=== PATIENT | male | born 1945 | race Caucasian/White ===

== ENCOUNTER 2018-03-29 01:01 | Inpatient (IN) | payer MEDICARE, OTHER ==
[2018-03-29] MEDS: morphine 4 MG/ML VIAL IV (01:11)
[2018-03-29] MEDS ORDERED: DEXTROSE 50% 50 ML SYRINGE ×2 (02:10→02:11)
[2018-03-29] MEDS: SODIUM CHLORIDE 0.9% 1L BAG IV* (02:17)
[2018-03-29] MEDS: SOD CHLORIDE 0.9% 1,000 ML IV ×3 (02:17→03:38)
[2018-03-29] MEDS: DEXTROSE 50% 50 ML SYRINGE IV ×2 (02:18→04:16)
[2018-03-29] MEDS: ONDANSETRON 4 MG INJ IV (02:19)
[2018-03-29 02:23] LABS: ADD MAN DIFF? NO
[2018-03-29] MEDS: DEXAMETHASONE 10 MG/ML 1 ML INJ IV (02:28)
[2018-03-29 02:49] LABS: BASOPHIL # 0.1 10^3/ul (0.0-0.1); BASOPHILS % 0.4 % (0.0-2.0); EOSINOPHILS # 0.1 10^3/ul (0.0-0.5); EOSINOPHILS % 0.6 % (0.0-7.0); HEMATOCRIT 31.3 % (42.0-52.0); HEMOGLOBIN 9.7 g/dl (14.0-18.0); LYMPHOCYTES # 1.5 10^3/ul (0.8-2.9); LYMPHOCYTES % 8.6 % (15.0-51.0); MEAN CORPUSCULAR HEMOGLOBIN 32.2 pg (29.0-33.0); MONOCYTE # 0.8 10^3/ul (0.3-0.9); MONOCYTES % 4.5 % (0.0-11.0); NEUTROPHIL # 15.2 10^3/ul (1.6-7.5); NEUTROPHILS % 85.1 % (39.0-77.0); PLATELET COUNT 250 10^3/UL (140-415); RED BLOOD COUNT 3.01 10^6/ul (4.70-6.10); RED CELL DISTRIBUTION WIDTH 13.1 % (11.5-14.5)
[2018-03-29 02:49] LABS: WHITE BLOOD COUNT 17.9 10^3/ul (4.8-10.8)
[2018-03-29 03:09] LABS: ADD UMIC NO; UR ASCORBIC ACID NEGATIVE (NEGATIVE); UR BILIRUBIN (Dip) NEGATIVE (NEGATIVE); UR BLOOD (Dip) NEGATIVE (NEGATIVE); UR CLARITY CLEAR (CLEAR); UR COLOR YELLOW (YELLOW); UR GLUCOSE (Dip) NEGATIVE (NEGATIVE); UR KETONES (Dip) NEGATIVE (NEGATIVE); UR LEUKOCYTE ESTERASE (Dip) NEGATIVE Leu/ul (NEGATIVE); UR NITRITE (Dip) NEGATIVE (NEGATIVE); UR SPECIFIC GRAVITY (Dip) 1.011 (1.003-1.030); UR TOTAL PROTEIN (Dip) NEGATIVE (NEGATIVE); UR UROBILINOGEN (Dip) NEGATIVE (NEGATIVE)
[2018-03-29 03:17] LABS: ALANINE AMINOTRANSFERASE 20 IU/L (13-69); ALBUMIN 3.1 g/dl (3.3-4.9); ALBUMIN/GLOBULIN RATIO 1.29; ALKALINE PHOSPHATASE 70 IU/L (42-121); ANION GAP 25 (8-16); ASPARTATE AMINO TRANSFERASE 58 IU/L (15-46); BILIRUBIN,INDIRECT 0.2 mg/dl (0-1.1); BILIRUBIN,TOTAL 0.2 mg/dl (0.2-1.3); BLOOD UREA NITROGEN 27 mg/dl (7-20); CALCIUM 7.7 mg/dl (8.4-10.2); CARBON DIOXIDE 10 mmol/L (21-31); CHLORIDE 111 mmol/L (97-110); CREATININE 1.24 mg/dl (0.61-1.24); GLUCOSE 65 mg/dl (70-220); LIPASE 345 U/L (23-300); SODIUM 141 mmol/L (135-144); TOTAL PROTEIN 5.5 g/dl (6.1-8.1)
[2018-03-29 03:29] LABS: LACTIC ACID 13.4 mmol/L (0.5-2.0)
[2018-03-29 03:34] LABS: TROPONIN-I < 0.010 ng/ml (0.000-0.120)
[2018-03-29 03:34] LABS: B-TYPE NATRIURETIC PEPTIDE 36 PG/ML (0-125)
[2018-03-29] MEDS: PIPER-TAZO 3.375 GM IV (PMX) 100 ML IVPB ×3 (03:44→22:17)
[2018-03-29] MEDS: metroNIDAZOLE 500 MG/NS (PMX) 100 ML IVPB ×3 (03:45→20:44)
[2018-03-29] MEDS ORDERED: ONDANSETRON 4 MG INJ IV (04:00)
[2018-03-29] MEDS ORDERED: BISACODYL (EC) 5 MG TAB PO (04:00)
[2018-03-29] MEDS ORDERED: DOCUSATE SODIUM 100 MG CAP PO (04:00)
[2018-03-29] MEDS ORDERED: ACETAMINOPHEN 650 MG SUPP PR (04:00)
[2018-03-29 04:08] LABS: ADD MAN DIFF? NO
[2018-03-29] MEDS: NORepinephrine 8MG/250 ML (PMX 250 ML IV (04:10)
[2018-03-29 04:11] LABS: BASOPHIL # 0.1 10^3/ul (0.0-0.1); BASOPHILS % 0.5 % (0.0-2.0); EOSINOPHILS # 0.1 10^3/ul (0.0-0.5); EOSINOPHILS % 0.4 % (0.0-7.0); HEMATOCRIT 41.6 % (42.0-52.0); HEMOGLOBIN 12.3 g/dl (14.0-18.0); LYMPHOCYTES # 1.1 10^3/ul (0.8-2.9); LYMPHOCYTES % 5.6 % (15.0-51.0); MEAN CORPUSCULAR HGB CONC 29.6 g/dl (32.0-37.0); MEAN CORPUSCULAR VOLUME 108.3 fl (82.0-101.0); MEAN PLATELET VOLUME 10.8 fl (7.4-10.4); MONOCYTE # 1.4 10^3/ul (0.3-0.9); MONOCYTES % 6.7 % (0.0-11.0); NEUTROPHIL # 17.2 10^3/ul (1.6-7.5); NUCLEATED RED BLOOD CELLS% 0.1 /100WBC (0.0-0.0); PLATELET COUNT 295 10^3/UL (140-415); RED BLOOD COUNT 3.84 10^6/ul (4.70-6.10)
[2018-03-29] MEDS: SODIUM BICARBONATE (IV ADD) 150 MEQ in DEXTROSE 5% 1,000 ML IV (04:50)
[2018-03-29 04:56] LABS: AADO2 Arterial 69.8 mmHg (7.0-24.0); Allen Test ACCEPTAB; Arterial Base Excess -30.9 mmol/L (-3.0-3); Arterial Blood Gas Oxygen Sat 99.8 mmHG (95.0-100.0); Arterial COHb 2.2 % (0.0-3.0); Arterial Fraction of Oxyhgb 97.3 % (93.0-99.0); Arterial HCO3 2.8 mmol/L (22.0-26.0); Arterial MetHb 0.3 % (0.0-1.5); Arterial Total Hemglobin 12.9 g/dl (12.0-18.0); Arterial pCO2 18.5 mmhg (35-45); Blood Gas IEPAP 15/5; Blood Gas PS 10; MODE MASK - BIPAP; Site LB
[2018-03-29] MEDS ORDERED: VANCOMYCIN IV PER PHARMACY XX (05:00)
[2018-03-29] MEDS: ALBUTEROL/IPRATROPIUM (NEB) 3 ML AMP NEB ×5 (05:03→21:12)
[2018-03-29] MEDS ORDERED: NA BICARBONATE 8.4% 50 ML SYG (05:42)
[2018-03-29] MEDS: NA BICARBONATE 8.4% 50 ML SYG IV ×6 (05:49→22:18)
[2018-03-29] MEDS: PANTOPRAZOLE 40 MG INJ IV (06:09)
[2018-03-29] MEDS: VANCOMYCIN 1.25 GM in SOD CHLORIDE 0.9% 250 ML IVPB (06:09)
[2018-03-29 06:29] LABS: FREE T4 (FREE THYROXINE) 1.33 ng/dl (0.78-2.44)
[2018-03-29 06:31] LABS: LACTIC ACID 20.3 mmol/L (0.5-2.0)
[2018-03-29 06:34] LABS: ADD MAN DIFF? NO
[2018-03-29] MEDS ORDERED: PHENYLephrine 20MG IN 250 ML 250 ML (06:37)
[2018-03-29 06:45] LABS: WHITE BLOOD COUNT 13.2 10^3/ul (4.8-10.8)
[2018-03-29 06:45] LABS: BASOPHIL # 0.1 10^3/ul (0.0-0.1); BASOPHILS % 0.4 % (0.0-2.0); EOSINOPHILS % 0.2 % (0.0-7.0); HEMATOCRIT 34.7 % (42.0-52.0); HEMOGLOBIN 10.6 g/dl (14.0-18.0); LYMPHOCYTES # 0.7 10^3/ul (0.8-2.9); LYMPHOCYTES % 5.1 % (15.0-51.0); MEAN CORPUSCULAR HEMOGLOBIN 31.1 pg (29.0-33.0); MEAN CORPUSCULAR HGB CONC 30.5 g/dl (32.0-37.0); MEAN CORPUSCULAR VOLUME 101.8 fl (82.0-101.0); MONOCYTE # 0.8 10^3/ul (0.3-0.9); MONOCYTES % 6.1 % (0.0-11.0); NEUTROPHIL # 11.6 10^3/ul (1.6-7.5); NEUTROPHILS % 87.6 % (39.0-77.0); PLATELET COUNT 272 10^3/UL (140-415); RED BLOOD COUNT 3.41 10^6/ul (4.70-6.10); RED CELL DISTRIBUTION WIDTH 13.2 % (11.5-14.5)
[2018-03-29 07:00] LABS: BLOOD UREA NITROGEN 25 mg/dl (7-20); CHLORIDE 113 mmol/L (97-110); CREATININE 1.42 mg/dl (0.61-1.24); INR 2.68; POTASSIUM 5.8 mmol/L (3.5-5.1); PROTIME 29.3 Sec (11.9-14.9); PT RATIO 2.3; SODIUM 141 mmol/L (135-144)
[2018-03-29] MEDS ORDERED: SUCCINYLCHOLINE CHLORIDE 100 MG/5 ML SYG IV (07:00)
[2018-03-29] MEDS ORDERED: ETOMIDATE 20 MG INJ (07:00)
[2018-03-29 07:01] LABS: PARTIAL THROMBOPLASTIN TIME 54.1 Sec (25.0-35.0)
[2018-03-29 07:03] LABS: ANION GAP 29 (8-16)
[2018-03-29 07:05] LABS: CARBON DIOXIDE < 5 mmol/L (21-31); GLUCOSE 29 mg/dl (70-220)
[2018-03-29] MEDS: PHENYLephrine 20MG IN 250 ML 250 ML IV (07:06)
[2018-03-29] MEDS ORDERED: MIDAZOLAM 1 MG/ML 2 ML INJ (07:20)
[2018-03-29] MEDS: MIDAZOLAM 1 MG/ML 2 ML INJ IV (07:55)
[2018-03-29] MEDS: FENTAnyl (DRIP) 1000 mcg/100mL 100 ML IV (08:00)
[2018-03-29] MEDS: MIDAZOLAM (DRIP) 50 mg/50 mL 50 ML IV (08:30)
[2018-03-29 08:55] LABS: LACTIC ACID > 24.0 mmol/L (0.5-2.0)
[2018-03-29 08:59] LABS: AADO2 Arterial 156.1 mmHg (7.0-24.0); Arterial Base Excess -28.6 mmol/L (-3.0-3); Arterial Blood Gas Oxygen Sat 99.8 mmHG (95.0-100.0); Arterial COHb 2.7 % (0.0-3.0); Arterial Fraction of Oxyhgb 96.9 % (93.0-99.0); Arterial HCO3 3.8 mmol/L (22.0-26.0); Arterial MetHb 0.2 % (0.0-1.5); Arterial pCO2 21.2 mmhg (35-45); Blood Gas Low PEEP Setting 0 cmH2O; MODE VENT - AC; Site Right Brachial
[2018-03-29] MEDS: PHENYLephrine 80 MG in DEXTROSE 5% 492 ML IV ×4 (09:02→21:36)
[2018-03-29 09:08] LABS: ANION GAP 39 (8-16); BLOOD UREA NITROGEN 25 mg/dl (7-20); CALCIUM 7.4 mg/dl (8.4-10.2); CHLORIDE 108 mmol/L (97-110); CREATININE 1.58 mg/dl (0.61-1.24); GLUCOSE 84 mg/dl (70-220); POTASSIUM 4.6 mmol/L (3.5-5.1); SODIUM 148 mmol/L (135-144)
[2018-03-29 09:13] LABS: CARBON DIOXIDE 6 mmol/L (21-31)
[2018-03-29] MEDS: VASOPRESSIN 60 UNIT in DEXTROSE 5% 57 ML IV (09:26)
[2018-03-29 09:40] LABS: LACTIC ACID > 24.0 mmol/L (0.5-2.0)
[2018-03-29] MEDS: CIPROFLOXACIN 400MG/D5W 200 ML IVPB ×2 (10:59→21:34)
[2018-03-29 12:44] LABS: ANION GAP 43 (8-16); BLOOD UREA NITROGEN 24 mg/dl (7-20); CALCIUM 6.9 mg/dl (8.4-10.2); CHLORIDE 102 mmol/L (97-110); CREATININE 1.77 mg/dl (0.61-1.24); GLUCOSE 166 mg/dl (70-220); POTASSIUM 3.8 mmol/L (3.5-5.1); SODIUM 147 mmol/L (135-144)
[2018-03-29 12:51] LABS: AADO2 Arterial 145.6 mmHg (7.0-24.0); Arterial Base Excess -29.7 mmol/L (-3.0-3); Arterial Blood Gas Oxygen Sat 99.6 mmHG (95.0-100.0); Arterial COHb 2.7 % (0.0-3.0); Arterial Fraction of Oxyhgb 96.7 % (93.0-99.0); Arterial HCO3 3.3 mmol/L (22.0-26.0); Arterial MetHb 0.2 % (0.0-1.5); Arterial Total Hemglobin 12.9 g/dl (12.0-18.0); Arterial pCO2 20.1 mmhg (35-45); Blood Gas Low PEEP Setting 0 cmH2O; MODE VENT - AC; Site Right Brachial
[2018-03-29 13:09] LABS: LACTIC ACID > 24.0 mmol/L (0.5-2.0)
[2018-03-29 13:09] LABS: CARBON DIOXIDE 6 mmol/L (21-31)
[2018-03-29] MEDS: VANCOMYCIN HCL 250 MG/5ML POSYG NGT ×2 (13:58→18:10)
[2018-03-29] MEDS: SODIUM BICARBONATE IV (14:38)
[2018-03-29] MEDS: DEXTROSE 5% IV (14:38)
[2018-03-29] MEDS: DOPamine-D5W 1.6 MG/ML 250 ML IV ×2 (14:43→23:27)
[2018-03-29 14:50] LABS: FREE T3 5.12 pg/ml (2.77-5.27)
[2018-03-29] MEDS: SOD CHLORIDE 0.9% 500 ML IV (16:12)
[2018-03-29 17:11] LABS: AADO2 Arterial 205.2 mmHg (7.0-24.0); Arterial Base Excess -29.3 mmol/L (-3.0-3); Arterial Blood Gas Oxygen Sat 98.8 mmHG (95.0-100.0); Arterial COHb 2.4 % (0.0-3.0); Arterial Fraction of Oxyhgb 96.2 % (93.0-99.0); Arterial HCO3 3.6 mmol/L (22.0-26.0); Arterial MetHb 0.2 % (0.0-1.5); Arterial pCO2 19.4 mmhg (35-45); Blood Gas Low PEEP Setting 0 cmH2O; MODE VENT - AC; Site A-Line; Temperature 34.4 C
[2018-03-29] MEDS: CALCIUM GLUCONATE 10% 1 GM in DEXTROSE 5% 100 ML IVPB (17:58)
[2018-03-29 18:21] LABS: ANION GAP 47 (8-16); BLOOD UREA NITROGEN 24 mg/dl (7-20); CALCIUM 6.5 mg/dl (8.4-10.2); CHLORIDE 100 mmol/L (97-110); CREATININE 1.89 mg/dl (0.61-1.24); GLUCOSE 197 mg/dl (70-220); POTASSIUM 3.8 mmol/L (3.5-5.1); SODIUM 148 mmol/L (135-144)
[2018-03-29 18:24] LABS: PHOSPHORUS 10.3 mg/dl (2.5-4.9)
[2018-03-29 18:31] LABS: MAGNESIUM 1.7 mg/dl (1.7-2.5)
[2018-03-29 19:24] LABS: CARBON DIOXIDE 5 mmol/L (21-31)
[2018-03-29 19:24] LABS: LACTIC ACID > 24.0 mmol/L (0.5-2.0)
[2018-03-29 22:02] LABS: AADO2 Arterial 225.7 mmHg (7.0-24.0); Arterial Base Excess -23.6 mmol/L (-3.0-3); Arterial Blood Gas Oxygen Sat 97.6 mmHG (95.0-100.0); Arterial COHb 2.7 % (0.0-3.0); Arterial Fraction of Oxyhgb 94.8 % (93.0-99.0); Arterial HCO3 6.2 mmol/L (22.0-26.0); Arterial MetHb 0.2 % (0.0-1.5); Arterial Total Hemglobin 11.6 g/dl (12.0-18.0); Arterial pCO2 25.3 mmhg (35-45); Blood Gas High PEEP Setting 0 cmH2O; MODE VENT - AC; Site A-Line
[2018-03-30] MEDS: ALBUTEROL/IPRATROPIUM (NEB) 3 ML AMP NEB ×6 (00:54→20:09)
[2018-03-30] MEDS: DEXTROSE 5% IV ×3 (01:02→21:45)
[2018-03-30] MEDS: SODIUM BICARBONATE IV ×3 (01:02→21:45)
[2018-03-30 01:11] LABS: MAGNESIUM 1.5 mg/dl (1.7-2.5)
[2018-03-30 01:12] LABS: ANION GAP 47 (8-16); BLOOD UREA NITROGEN 28 mg/dl (7-20); CALCIUM 6.3 mg/dl (8.4-10.2); CHLORIDE 94 mmol/L (97-110); CREATININE 2.13 mg/dl (0.61-1.24); GLUCOSE 263 mg/dl (70-220); POTASSIUM 3.3 mmol/L (3.5-5.1); SODIUM 146 mmol/L (135-144)
[2018-03-30 01:12] LABS: PHOSPHORUS 4.9 mg/dl (2.5-4.9)
[2018-03-30 01:14] LABS: CARBON DIOXIDE 8 mmol/L (21-31)
[2018-03-30] MEDS: PHENYLephrine 80 MG in DEXTROSE 5% 492 ML IV ×5 (02:11→20:57)
[2018-03-30 02:12] LABS: AADO2 Arterial 598.7 mmHg (7.0-24.0); Arterial Base Excess -23.6 mmol/L (-3.0-3); Arterial Blood Gas Oxygen Sat 94.9 mmHG (95.0-100.0); Arterial COHb 2.5 % (0.0-3.0); Arterial Fraction of Oxyhgb 92.3 % (93.0-99.0); Arterial HCO3 6.9 mmol/L (22.0-26.0); Arterial MetHb 0.2 % (0.0-1.5); Arterial pCO2 30.7 mmhg (35-45); Blood Gas High PEEP Setting 0 cmH2O; MODE VENT - AC; Site A-Line
[2018-03-30] MEDS: DOPamine-D5W 1.6 MG/ML 250 ML IV ×5 (03:50→21:50)
[2018-03-30] MEDS: VASOPRESSIN 60 UNIT in DEXTROSE 5% 57 ML IV ×4 (04:55→23:18)
[2018-03-30] MEDS: VANCOMYCIN HCL 250 MG/5ML POSYG NGT ×5 (05:16→23:18)
[2018-03-30] MEDS: VANCOMYCIN 1 GM 250 ML IVPB (05:16)
[2018-03-30] MEDS: PIPER-TAZO 3.375 GM IV (PMX) 100 ML IVPB ×3 (05:16→21:53)
[2018-03-30] MEDS: PANTOPRAZOLE 40 MG INJ IV (05:17)
[2018-03-30] MEDS: metroNIDAZOLE 500 MG/NS (PMX) 100 ML IVPB (05:17)
[2018-03-30 05:46] LABS: WHITE BLOOD COUNT 23.8 10^3/ul (4.8-10.8)
[2018-03-30 05:46] LABS: ABNORMAL IP MESSAGE 1; HEMATOCRIT 37.4 % (42.0-52.0); HEMOGLOBIN 11.6 g/dl (14.0-18.0); MEAN CORPUSCULAR HEMOGLOBIN 31.4 pg (29.0-33.0); MEAN CORPUSCULAR VOLUME 101.4 fl (82.0-101.0); MEAN PLATELET VOLUME 11.6 fl (7.4-10.4); NUCLEATED RED BLOOD CELLS% 0.1 /100WBC (0.0-0.0); PLATELET COUNT 266 10^3/UL (140-415); POSITIVE DIFF @See below; RED BLOOD COUNT 3.69 10^6/ul (4.70-6.10); RED CELL DISTRIBUTION WIDTH 13.8 % (11.5-14.5)
[2018-03-30] MEDS ORDERED: GLUCOSE GEL 15 GRAM TUBE BUCCAL (06:00)
[2018-03-30] MEDS ORDERED: GLUCOSE GEL 15 GRAM TUBE PO ×2 (06:00)
[2018-03-30] MEDS ORDERED: GLUCAGON 1 MG INJ IM (06:00)
[2018-03-30] MEDS ORDERED: DEXTROSE 50% 50 ML SYRINGE IV ×3 (06:00→09:00)
[2018-03-30 06:11] LABS: AMMONIA 105 umol/l (9-30)
[2018-03-30 06:15] LABS: Arterial Base Excess -23.4 mmol/L (-3.0-3); Arterial Blood Gas Oxygen Sat 99.6 mmHG (95.0-100.0); Arterial Fraction of Oxyhgb 96.4 % (93.0-99.0); Arterial HCO3 4.8 mmol/L (22.0-26.0); Arterial MetHb 0.2 % (0.0-1.5); Arterial pCO2 17.3 mmhg (35-45); Blood Gas High PEEP Setting 0 cmH2O; MODE VENT - AC; Site A-Line
[2018-03-30 06:32] LABS: MAGNESIUM 1.4 mg/dl (1.7-2.5)
[2018-03-30] MEDS: NA BICARBONATE 8.4% 50 ML SYG IV ×4 (06:50→23:34)
[2018-03-30 06:52] LABS: PHOSPHORUS 4.4 mg/dl (2.5-4.9)
[2018-03-30 07:05] LABS: ADD MAN DIFF? YES
[2018-03-30] MEDS: SOD CHLORIDE 0.9% 500 ML IV (07:08)
[2018-03-30 08:23] LABS: ALANINE AMINOTRANSFERASE 47 IU/L (13-69); ALBUMIN 2.2 g/dl (3.3-4.9); ALBUMIN/GLOBULIN RATIO 1.22; ALKALINE PHOSPHATASE 27 IU/L (42-121); ANION GAP 50 (8-16); ASPARTATE AMINO TRANSFERASE 124 IU/L (15-46); BILIRUBIN,INDIRECT 0.1 mg/dl (0-1.1); BILIRUBIN,TOTAL 0.1 mg/dl (0.2-1.3); BLOOD UREA NITROGEN 29 mg/dl (7-20); CALCIUM 6.5 mg/dl (8.4-10.2); CHLORIDE 90 mmol/L (97-110); CREATININE 2.46 mg/dl (0.61-1.24); GLUCOSE 245 mg/dl (70-220); POTASSIUM 3.2 mmol/L (3.5-5.1); SODIUM 145 mmol/L (135-144)
[2018-03-30 08:32] LABS: CARBON DIOXIDE 8 mmol/L (21-31)
[2018-03-30] MEDS: INSULIN ASPART [NOVOLOG] 3 ML PEN SC (09:00)
[2018-03-30 09:27] LABS: PHOSPHORUS 7.6 mg/dl (2.5-4.9)
[2018-03-30 09:27] LABS: MAGNESIUM 1.4 mg/dl (1.7-2.5)
[2018-03-30] MEDS: CIPROFLOXACIN 400MG/D5W 200 ML IVPB (09:27)
[2018-03-30] MEDS: ACCU-CHEK XX ×16 (09:44→23:18)
[2018-03-30] MEDS: INSULIN HUMAN REGULAR 100 UNIT in SOD CHLORIDE 0.9% 99 ML IV (09:51)
[2018-03-30 10:09] LABS: BAND NEUTROPHILS #M 7.6 10^3/ul (0.0-0.6); BAND NEUTROPHILS % (M) 32 % (0-4); LYMPHOCYTES #M 1.9 10^3/ul (0.8-2.9); LYMPHOCYTES % (M) 8 % (15-51); MONOCYTE #M 1.4 10^3/ul (0.3-0.9); MONOCYTES % (M) 6 % (0-11); PLATELET ESTIMATE NORMAL; POIKILOCYTOSIS 1+ (0-0); REACTIVE LYMPHOCYTES #M 0.2 10^3/ul (0.0-0.0); REACTIVE LYMPHOCYTES% (M) 1 % (0-0); SEG NEUT #M 14.4 10^3/ul (1.6-7.5); SEGMENTED NEUTROPHILS (M) % 53 % (39-77); SMUDGE%M 5 % (0-0)
[2018-03-30] MEDS: POTASSIUM CHLORIDE 100 ML IVPB ×2 (10:27→12:56)
[2018-03-30 11:13] LABS: FOLATE 8.7 ng/ml (2.8-20.0)
[2018-03-30 11:25] LABS: Arterial Base Excess -20.7 mmol/L (-3.0-3); Arterial Blood Gas Oxygen Sat 99.7 mmHG (95.0-100.0); Arterial COHb 2.3 % (0.0-3.0); Arterial Fraction of Oxyhgb 97.1 % (93.0-99.0); Arterial HCO3 6.8 mmol/L (22.0-26.0); Arterial MetHb 0.3 % (0.0-1.5); Arterial pCO2 21.2 mmhg (35-45); MODE VENT - AC; Site A-Line
[2018-03-30] MEDS: CALCIUM GLUCONATE 10% 2 GM in DEXTROSE 5% 100 ML IVPB ×2 (11:44→18:19)
[2018-03-30] MEDS: MAGNESIUM SULFATE 4 GM/100 ML 100 ML IVPB (13:32)
[2018-03-30] MEDS: EPINEPHrine 4 MG in SOD CHLORIDE 0.9% 246 ML IV ×2 (14:40→23:30)
[2018-03-30] MEDS: MIDAZOLAM (DRIP) 50 mg/50 mL 50 ML IV (14:52)
[2018-03-30 15:27] LABS: AADO2 Arterial 415.2 mmHg (7.0-24.0); Allen Test ACCEPTAB; Arterial Base Excess -20.9 mmol/L (-3.0-3); Arterial Blood Gas Oxygen Sat 99.3 mmHG (95.0-100.0); Arterial COHb 2.4 % (0.0-3.0); Arterial Fraction of Oxyhgb 96.7 % (93.0-99.0); Arterial HCO3 6.3 mmol/L (22.0-26.0); Arterial MetHb 0.2 % (0.0-1.5); Arterial Total Hemglobin 11.9 g/dl (12.0-18.0); MODE VENT - AC; Site A-Line
[2018-03-30 16:43] LABS: ANION GAP 52 (8-16); BLOOD UREA NITROGEN 32 mg/dl (7-20); CALCIUM 6.1 mg/dl (8.4-10.2); CHLORIDE 84 mmol/L (97-110); CREATININE 2.94 mg/dl (0.61-1.24); GLUCOSE 146 mg/dl (70-220); PHOSPHORUS 7.5 mg/dl (2.5-4.9); POTASSIUM 3.5 mmol/L (3.5-5.1); SODIUM 140 mmol/L (135-144)
[2018-03-30 16:45] LABS: CARBON DIOXIDE 8 mmol/L (21-31)
[2018-03-30] MEDS: POTASSIUM CHLORIDE 50 ML IVPB ×2 (17:20→19:28)
[2018-03-30 22:34] LABS: AADO2 Arterial 361.6 mmHg (7.0-24.0); Arterial Base Excess -21.8 mmol/L (-3.0-3); Arterial Blood Gas Oxygen Sat 98.1 mmHG (95.0-100.0); Arterial COHb 2.3 % (0.0-3.0); Arterial Fraction of Oxyhgb 95.6 % (93.0-99.0); Arterial HCO3 6.4 mmol/L (22.0-26.0); Arterial MetHb 0.2 % (0.0-1.5); Arterial Total Hemglobin 11.8 g/dl (12.0-18.0); Arterial pCO2 21.8 mmhg (35-45); Blood Gas Low PEEP Setting 0 cmH2O; Blood Gas Mean Airway Pressure 15; MODE VENT - AC; Site A-Line
[2018-03-30 22:40] LABS: ANION GAP 56 (8-16); BLOOD UREA NITROGEN 33 mg/dl (7-20); CALCIUM 6.4 mg/dl (8.4-10.2); CHLORIDE 79 mmol/L (97-110); CREATININE 3.28 mg/dl (0.61-1.24); GLUCOSE 149 mg/dl (70-220); SODIUM 139 mmol/L (135-144)
[2018-03-30 22:42] LABS: CARBON DIOXIDE 8 mmol/L (21-31)
[2018-03-31] MEDS: ACCU-CHEK XX ×11 (00:40→10:00)
[2018-03-31] MEDS: PHENYLephrine 80 MG in DEXTROSE 5% 492 ML IV ×5 (01:25→20:08)
[2018-03-31] MEDS: ALBUTEROL/IPRATROPIUM (NEB) 3 ML AMP NEB ×6 (01:29→21:25)
[2018-03-31] MEDS: DOPamine-D5W 1.6 MG/ML 250 ML IV ×5 (02:11→20:09)
[2018-03-31] MEDS: PIPER-TAZO 3.375 GM IV (PMX) 100 ML IVPB (05:15)
[2018-03-31] MEDS: VANCOMYCIN HCL 250 MG/5ML POSYG NGT (05:15)
[2018-03-31] MEDS: PANTOPRAZOLE 40 MG INJ IV (05:15)
[2018-03-31] MEDS: MIDAZOLAM (DRIP) 50 mg/50 mL 50 ML IV (05:19)
[2018-03-31] MEDS: FENTAnyl (DRIP) 1000 mcg/100mL 100 ML IV (05:36)
[2018-03-31 05:55] LABS: ANION GAP 53 (8-16); BLOOD UREA NITROGEN 39 mg/dl (7-20); CARBON DIOXIDE 10 mmol/L (21-31); CHLORIDE 78 mmol/L (97-110); GLUCOSE 103 mg/dl (70-220); MAGNESIUM 2.3 mg/dl (1.7-2.5); PHOSPHORUS 8.8 mg/dl (2.5-4.9); POTASSIUM 4.3 mmol/L (3.5-5.1); SODIUM 137 mmol/L (135-144)
[2018-03-31 05:57] LABS: VANCOMYCIN,TROUGH 20.9 ug/ml (10.0-20.0)
[2018-03-31 06:01] LABS: CALCIUM 5.9 mg/dl (8.4-10.2)
[2018-03-31 06:13] LABS: AADO2 Arterial 450.2 mmHg (7.0-24.0); Arterial Base Excess -16.8 mmol/L (-3.0-3); Arterial Blood Gas Oxygen Sat 99.7 mmHG (95.0-100.0); Arterial Fraction of Oxyhgb 97.4 % (93.0-99.0); Arterial HCO3 9.4 mmol/L (22.0-26.0); Arterial MetHb 0.3 % (0.0-1.5); Arterial Total Hemglobin 11.3 g/dl (12.0-18.0); Arterial pCO2 24.3 mmhg (35-45); Blood Gas Mean Airway Pressure 9.2; MODE VENT - AC; Site A-Line
[2018-03-31] MEDS: DEXTROSE 5% IV ×2 (06:36→17:31)
[2018-03-31] MEDS: SODIUM BICARBONATE IV ×2 (06:36→17:31)
[2018-03-31] MEDS: CALCIUM GLUCONATE 10% 1 GM in DEXTROSE 5% 100 ML IVPB ×2 (06:40→20:14)
[2018-03-31 06:55] LABS: LACTIC ACID > 24.0 mmol/L (0.5-2.0)
[2018-03-31] MEDS: INSULIN ASPART [NOVOLOG] 3 ML PEN SC ×4 (08:58→20:28)
[2018-03-31] MEDS: CIPROFLOXACIN 400MG/D5W 200 ML IVPB (08:59)
[2018-03-31 09:22] LABS: ABNORMAL IP MESSAGE 1; HEMATOCRIT 32.5 % (42.0-52.0); HEMOGLOBIN 10.8 g/dl (14.0-18.0); MEAN CORPUSCULAR HEMOGLOBIN 32.3 pg (29.0-33.0); MEAN CORPUSCULAR HGB CONC 33.2 g/dl (32.0-37.0); MEAN CORPUSCULAR VOLUME 97.3 fl (82.0-101.0); MEAN PLATELET VOLUME 12.2 fl (7.4-10.4); NUCLEATED RED BLOOD CELLS% 0.9 /100WBC (0.0-0.0); PLATELET COUNT 127 10^3/UL (140-415); POSITIVE DIFF @See below; RED BLOOD COUNT 3.34 10^6/ul (4.70-6.10); RED CELL DISTRIBUTION WIDTH 14.9 % (11.5-14.5)
[2018-03-31 09:22] LABS: WHITE BLOOD COUNT 41.5 10^3/ul (4.8-10.8)
[2018-03-31 09:25] LABS: ADD MAN DIFF? YES
[2018-03-31] MEDS: EPINEPHrine 4 MG in SOD CHLORIDE 0.9% 246 ML IV ×2 (09:45→18:26)
[2018-03-31 09:49] LABS: ANION GAP 55 (8-16); BLOOD UREA NITROGEN 39 mg/dl (7-20); CARBON DIOXIDE 11 mmol/L (21-31); CHLORIDE 74 mmol/L (97-110); CREATININE 3.35 mg/dl (0.61-1.24); GLUCOSE 130 mg/dl (70-220); POTASSIUM 4.2 mmol/L (3.5-5.1); SODIUM 136 mmol/L (135-144)
[2018-03-31 09:52] LABS: CALCIUM 5.8 mg/dl (8.4-10.2)
[2018-03-31 10:12] LABS: BAND NEUTROPHILS #M 17.8 10^3/ul (0.0-0.6); BAND NEUTROPHILS % (M) 43 % (0-4); BURR CELLS 2+ (0-0); EOSINOPHILS % (M) 1 % (0-7); ERYTHROBLAST% (NRBC) (M) 2 % (0-0); GIANT THROMBO% (M) 1 % (0-0); LYMPHOCYTES #M 0.8 10^3/ul (0.8-2.9); LYMPHOCYTES % (M) 2 % (15-51); METAMYELOCYTES #M 4.1 10^3/ul (0.0-0.0); METAMYELOCYTES %M 10 % (0-0); MONOCYTE #M 7.4 10^3/ul (0.3-0.9); MONOCYTES % (M) 18 % (0-11); MYELOCYTES % (M) 5 % (0-0); PLATELET ESTIMATE DECREASED; POIKILOCYTOSIS 2+ (0-0); POLYCHROMASIA 1+ (0-0); REACTIVE LYMPHOCYTES #M 0.8 10^3/ul (0.0-0.0); REACTIVE LYMPHOCYTES% (M) 2 % (0-0); SEG NEUT #M 15.3 10^3/ul (1.6-7.5); SEGMENTED NEUTROPHILS (M) % 19 % (39-77); SMUDGE%M 31 % (0-0)
[2018-03-31] MEDS: CALCIUM GLUCONATE 10% 2 GM in DEXTROSE 5% 100 ML IVPB ×2 (11:29→13:49)
[2018-03-31 11:56] LABS: AADO2 Arterial 568.1 mmHg (7.0-24.0); Arterial Base Excess -16.2 mmol/L (-3.0-3); Arterial Blood Gas Oxygen Sat 97.9 mmHG (95.0-100.0); Arterial COHb 1.8 % (0.0-3.0); Arterial Fraction of Oxyhgb 95.9 % (93.0-99.0); Arterial HCO3 11.5 mmol/L (22.0-26.0); Arterial MetHb 0.2 % (0.0-1.5); Arterial Total Hemglobin 10.8 g/dl (12.0-18.0); MODE VENT - AC; Site A-Line
[2018-03-31] MEDS: PIPER-TAZO 2.25 GM (PMX) 50 ML IVPB ×2 (13:53→21:42)
[2018-03-31] MEDS: NA BICARBONATE 8.4% 50 ML SYG IV ×2 (15:32→19:51)
[2018-03-31 17:46] LABS: PHOSPHORUS 11.9 mg/dl (2.5-4.9)
[2018-03-31 17:47] LABS: ANION GAP 53 (8-16); BLOOD UREA NITROGEN 42 mg/dl (7-20); CARBON DIOXIDE 13 mmol/L (21-31); CHLORIDE 70 mmol/L (97-110); GLUCOSE 145 mg/dl (70-220); MAGNESIUM 2.3 mg/dl (1.7-2.5); POTASSIUM 5.5 mmol/L (3.5-5.1); SODIUM 130 mmol/L (135-144)
[2018-03-31 17:57] LABS: CREATININE 3.47 mg/dl (0.61-1.24)
[2018-03-31 17:58] LABS: CALCIUM 5.8 mg/dl (8.4-10.2)
[2018-03-31 18:29] LABS: AADO2 Arterial 600.4 mmHg (7.0-24.0); Arterial Base Excess -15.6 mmol/L (-3.0-3); Arterial Blood Gas Oxygen Sat 93.3 mmHG (95.0-100.0); Arterial COHb 1.7 % (0.0-3.0); Arterial Fraction of Oxyhgb 91.5 % (93.0-99.0); Arterial HCO3 11.9 mmol/L (22.0-26.0); Arterial MetHb 0.2 % (0.0-1.5); Arterial Total Hemglobin 11.4 g/dl (12.0-18.0); Arterial pCO2 34.2 mmhg (35-45); MODE VENT - AC; Site A-Line
[2018-03-31] MEDS: NA POLYST SULFON 15 GM/60 ML BTL PO (19:51)
[2018-03-31] MEDS: VASOPRESSIN 60 UNIT in DEXTROSE 5% 57 ML IV (20:07)
[2018-04-01] MEDS: PHENYLephrine 80 MG in DEXTROSE 5% 492 ML IV ×3 (00:27→08:44)
[2018-04-01] MEDS: DOPamine-D5W 1.6 MG/ML 250 ML IV ×2 (00:28→04:47)
[2018-04-01] MEDS: ALBUTEROL/IPRATROPIUM (NEB) 3 ML AMP NEB ×3 (01:00→09:00)
[2018-04-01] MEDS: INSULIN ASPART [NOVOLOG] 3 ML PEN SC ×3 (01:00→08:55)
[2018-04-01] MEDS: ACCU-CHEK XX (01:38)
[2018-04-01] MEDS: EPINEPHrine 4 MG in SOD CHLORIDE 0.9% 246 ML IV ×2 (01:53→08:39)
[2018-04-01] MEDS: SODIUM BICARBONATE IV (03:10)
[2018-04-01] MEDS: DEXTROSE 5% IV (03:10)
[2018-04-01] MEDS: PANTOPRAZOLE 40 MG INJ IV (05:01)
[2018-04-01] MEDS: PIPER-TAZO 2.25 GM (PMX) 50 ML IVPB (05:02)
[2018-04-01 05:27] LABS: WHITE BLOOD COUNT 40.2 10^3/ul (4.8-10.8)
[2018-04-01 05:27] LABS: ABNORMAL IP MESSAGE 1; HEMATOCRIT 30.3 % (42.0-52.0); HEMOGLOBIN 10.2 g/dl (14.0-18.0); MEAN CORPUSCULAR HEMOGLOBIN 32.3 pg (29.0-33.0); MEAN CORPUSCULAR HGB CONC 33.7 g/dl (32.0-37.0); MEAN CORPUSCULAR VOLUME 95.9 fl (82.0-101.0); MEAN PLATELET VOLUME 12.4 fl (7.4-10.4); PLATELET COUNT 76 10^3/UL (140-415); POSITIVE DIFF @See below; RED BLOOD COUNT 3.16 10^6/ul (4.70-6.10); RED CELL DISTRIBUTION WIDTH 15.3 % (11.5-14.5)
[2018-04-01 05:34] LABS: ADD MAN DIFF? YES
[2018-04-01] MEDS: VASOPRESSIN 60 UNIT in DEXTROSE 5% 57 ML IV (06:09)
[2018-04-01 06:11] LABS: ALANINE AMINOTRANSFERASE 111 IU/L (13-69); ALBUMIN/GLOBULIN RATIO 1.25; ALKALINE PHOSPHATASE 80 IU/L (42-121); ANION GAP 48 (8-16); ASPARTATE AMINO TRANSFERASE 677 IU/L (15-46); BLOOD UREA NITROGEN 46 mg/dl (7-20); CARBON DIOXIDE 16 mmol/L (21-31); CHLORIDE 67 mmol/L (97-110); GLUCOSE 135 mg/dl (70-220); SODIUM 125 mmol/L (135-144); TOTAL PROTEIN 3.6 g/dl (6.1-8.1)
[2018-04-01 06:22] LABS: CREATININE 3.43 mg/dl (0.61-1.24); POTASSIUM 6.1 mmol/L (3.5-5.1)
[2018-04-01 06:23] LABS: CALCIUM 5.4 mg/dl (8.4-10.2)
[2018-04-01 06:29] LABS: ANISOCYTOSIS 1+ (0-0); BAND NEUTROPHILS #M 21.7 10^3/ul (0.0-0.6); BAND NEUTROPHILS % (M) 54 % (0-4); EOSINOPHILS % (M) 2 % (0-7); ERYTHROBLAST% (NRBC) (M) 5 % (0-0); LYMPHOCYTES % (M) 5 % (15-51); METAMYELOCYTES %M 5 % (0-0); MONOCYTE #M 0.8 10^3/ul (0.3-0.9); MONOCYTES % (M) 2 % (0-11); PLATELET ESTIMATE SIG DECREASED; POIKILOCYTOSIS 2+ (0-0); SEG NEUT #M 21.6 10^3/ul (1.6-7.5); SEGMENTED NEUTROPHILS (M) % 32 % (39-77); SMUDGE%M 12 % (0-0)
[2018-04-01] MEDS: NA POLYST SULFON 15 GM/60 ML BTL PO (07:05)
[2018-04-01] MEDS: CALCIUM GLUCONATE 10% 2 GM in DEXTROSE 5% 100 ML IVPB (07:53)
[2018-04-01] MEDS: CIPROFLOXACIN 400MG/D5W 200 ML IVPB (08:32)
[2018-04-01 08:47] LABS: LACTIC ACID > 24.0 mmol/L (0.5-2.0)
[2018-04-01] MEDS: DEXTROSE 50% 50 ML SYRINGE IV (08:52)
== END 2018-04-01 08:59 | disposition expired | DRG 871 ==
LOC: E/R 01:01 → ICU 03:56
PROC: 5A1945Z Respiratory Ventilation, 24-96 Consecutive Hours (ICD-10-PCS; principal; 2018-03-29)
PROC: 02HV33Z Insertion of Infusion Device into Superior Vena Cava, Percutaneous Approach (ICD-10-PCS; 2018-03-29)
PROC: 0BH18EZ Insertion of Endotracheal Airway into Trachea, Via Natural or Artificial Opening Endoscopic (ICD-10-PCS; 2018-03-29)
PROC: 04HY32Z Insertion of Monitoring Device into Lower Artery, Percutaneous Approach (ICD-10-PCS; 2018-03-29)
DX: A41.9 Sepsis, unspecified organism (principal); R65.21 Severe sepsis with septic shock; J96.01 Acute respiratory failure with hypoxia; G93.41 Metabolic encephalopathy; E87.2 Acidosis; N17.9 Acute kidney failure, unspecified; K55.9 Vascular disorder of intestine, unspecified; I10 Essential (primary) hypertension; E11.649 Type 2 diabetes mellitus with hypoglycemia without coma; J44.9 Chronic obstructive pulmonary disease, unspecified; F20.9 Schizophrenia, unspecified; E87.6 Hypokalemia; E83.42 Hypomagnesemia; E83.51 Hypocalcemia; D69.6 Thrombocytopenia, unspecified; R00.1 Bradycardia, unspecified
CPT/HCPCS: 36415; 36600; 71045; 74018; 74176; 80048; 80053; 80202; 81003; 82140; 82533; 82607; 82746; 82803; 82962; 83036; 83605; 83690; 83735; 83880; 84100; 84439; 84443; 84481; 84484; 85025; 85610; 85730; 87040; 87045; 87075; 87081; 87086; 87177; 93005; 93306; 94002; 94003; 94640; 94660; 94664; 94770; 96361; 96374; 96375; 99291-25